=== PATIENT | male | born 1940 | race Caucasian/White ===

== ENCOUNTER → 2016-06-23 | Outpatient (CLI) | payer MEDICARE ==
[2015-08-22 13:00] VITALS: BP 170/74
[~2016-06-23] MED LIST: AMLO5TAB2 PO; ASPI325T4 PO; CRESTOR10 MG PO; HYDR12.58 PO; OMEP20TA PO
--- NOTE | 2016-06-23 09:14 | RAD ---
Carotid ultrasound, 06/23/2016: History: Cardiovascular disease Duplex evaluation of the carotid arteries in the neck was performed including grayscale, color-flow and spectral Doppler analysis. There is mild to moderate atherosclerotic plaquing in the common carotid arteries and at the carotid bifurcations. On the right, there is an elevated velocity in the proximal internal carotid artery of 200 cm/s. The end-diastolic velocity at that level is 23 cm/s. The internal carotid artery to common carotid artery ratio is 2.3. This ratio and the peak systolic velocity suggest narrowing in the 50-70% diameter range, however, the lack of end-diastolic velocity measurement suggests a lesser degree of narrowing. The color images do not demonstrate high-grade stenosis. Similar findings were present on the previous study of 06/01/2015. The CTA of the neck exam from 10/30/2015 did not demonstrate high-grade stenosis on the right. The current study also demonstrates an elevated velocity in the right external carotid artery up to 208 cm/s. The color images do not demonstrate high-grade external carotid arterial stenosis. On the left, the peak systolic velocity in the internal carotid artery is 140 cm/s with an end-diastolic velocity of 21 cm/s. The internal carotid artery to common carotid artery ratio is 1.1. These Doppler findings suggest narrowing in the 0-50% diameter range. Antegrade flow is present in both vertebral arteries in the neck. IMPRESSION: 1. Mild to moderate atherosclerotic plaquing at the carotid bifurcations. 2. Ongoing mild velocity accelerations in the right proximal internal carotid and external carotid arteries as described above, without evidence of high-grade stenosis. 3. Narrowing at the left carotid bifurcation in the 0-50% diameter range. Note: Stenosis calculations for CT, MRA and conventional angiography are based upon determination of the distal ICA diameter in accordance with the NASCET methodology. Stenosis calculations for Doppler studies are derived from validated velocity criteria which are known to correlate with NASCET methodology of determining stenosis.
== END | disposition home or self-care (01) ==
LOC: US 06:49
PROVIDERS: ATTEND Specialist
DX: I65.23 Occlusion and stenosis of bilateral carotid arteries (principal)
CPT/HCPCS: 93880

== ENCOUNTER → 2016-10-08 | Outpatient (CLI) | payer MEDICARE ==
[2015-08-22 13:00] VITALS: BP 170/74
[~2016-10-08] MED LIST changes: -ASPI325T4 PO; +ASPI325T8 PO; -OMEP20TA PO; +OMEP20TA8 PO
--- NOTE | 2016-10-08 15:49 | RAD ---
Indication: Right carotid bruit. Grayscale, color-flow and duplex Doppler evaluation of the right carotid system was performed. There is mild/moderate plaquing identified in the right carotid bulb and bifurcation extending into the internal and external carotid arteries. Peak velocity in the right common carotid artery is 127 cm/s. Peak velocity in the right internal carotid artery is proximally measuring 206 cm/s. There is elevated velocity in the right external carotid artery reaching 311 cm/s. The right vertebral artery demonstrates antegrade flow. The ICA to CCA ratio on the right is 2.6. Impression: Moderate right carotid plaque. There are elevated velocities present in the proximal right ICA with the measurements consistent with approximately 50-69% diameter stenosis.
== END | disposition home or self-care (01) ==
LOC: US 15:06
PROVIDERS: ATTEND Specialist
DX: I65.21 Occlusion and stenosis of right carotid artery (principal)
CPT/HCPCS: 93882

== ENCOUNTER → 2016-10-10 | Outpatient (CLI) | payer MEDICARE ==
[2015-08-22 13:00] VITALS: BP 170/74
[~2016-10-10] MED LIST changes: +CONTRAST GIVEN MC PRN; +IOHEXOL 300 MG/ML 75 ML VIAL IV ONE
--- NOTE | 2016-10-10 09:54 | RAD ---
Indication: Carotid stenosis. Axial imaging through the neck was performed after the administration of intravenous contrast and utilizing the CT angiography protocol. Multiplanar, 3-D and MIP reformations were also performed. There is a normal three-vessel branching pattern to the aortic arch. The origins to the common carotid arteries are widely patent. Both common carotid arteries are patent. There is some mild to moderate calcified plaque on the left. There is moderate plaque identified at the left carotid bifurcation and proximal left ICA. This does produce approximately 50% diameter stenosis of the proximal left ICA. The remainder of the left ICA is widely patent. The right ICA demonstrates postop changes and appears widely patent. No stenosis is seen. The vertebral arteries are patent. The right vertebral artery is dominant. Bilateral posterior cerebral, anterior cerebral and middle cerebral arteries are patent. Impression: There is moderate calcified plaque at the left carotid bifurcation and proximal left ICA producing approximately 50% diameter stenosis. No other significant abnormality is detected. PQRS Compliance Statement: One or more of the following individualized dose reduction techniques were utilized for this examination: 1. Automated exposure control 2. Adjustment of the mA and/or kV according to patient size 3. Use of iterative reconstruction technique
== END | disposition home or self-care (01) ==
LOC: CT 08:28
PROVIDERS: ATTEND Specialist
DX: I65.29 Occlusion and stenosis of unspecified carotid artery (principal)
CPT/HCPCS: 70498; Q9967

== ENCOUNTER 2018-01-18 15:44 | Emergency (ER) | payer MEDICARE ==
[~2018-01-18] VITALS: Ht 170.2 cm; Wt 74.8 kg
[~2018-01-18 15:44] MED LIST changes: -AMLO5TAB2 PO; +AMLO5TAB7 PO; -CONTRAST GIVEN MC PRN; -IOHEXOL 300 MG/ML 75 ML VIAL IV ONE
[2018-01-18 16:55] VITALS: BP 144/68
[2018-01-18] MEDS ORDERED: LIDOCAINE WITH 8.4% SOD BICARB 3 ML DISP.SYRIN. INJ ONE (17:00)
[2018-01-18] MEDS ORDERED: DIPHTH,PERTUSS(ACELL),TET TOX 0.5 ML DISP.SYRIN. VAX IM ONE (17:00)
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
== END 2018-01-18 19:04 | disposition home or self-care (01) ==
LOC: ER 15:44
DX: S01.91XA Laceration without foreign body of unspecified part of head, initial encounter (principal); E78.00 Pure hypercholesterolemia, unspecified; K21.9 Gastro-esophageal reflux disease without esophagitis; I25.10 Atherosclerotic heart disease of native coronary artery without angina pectoris; Z86.73 Personal history of transient ischemic attack (TIA), and cerebral infarction without residual deficits; I10 Essential (primary) hypertension; Z95.1 Presence of aortocoronary bypass graft; Z95.5 Presence of coronary angioplasty implant and graft; Z98.84 Bariatric surgery status; W22.8XXA Striking against or struck by other objects, initial encounter; Y93.89 Activity, other specified; Y92.89 Other specified places as the place of occurrence of the external cause; Y99.8 Other external cause status
CPT/HCPCS: 12011; 70450; 72125; 90471; 90715; 99284-25

== ENCOUNTER 2018-01-25 09:43 | Emergency (ER) | payer MEDICARE ==
[~2018-01-25] VITALS: Ht 170.2 cm; Wt 74.8 kg
[2018-01-25 10:09] VITALS: BP 140/65
--- NOTE | 2018-01-25 10:24 | PHYS DOC ---
Past Medical History Past Medical History: High Cholesterol, Hypertension Past Surgical History: Appendectomy, Coronary Bypass Surgery Additional Past Surgical Histo: right carotid with stent placement Alcohol Use: None Drug Use: None Adult General Chief Complaint Chief Complaint: SUTURE/STAPLE REMOVAL [facility] HPI Patient is a 77 year old male who presents with a need for suture removal. The patient has a well-healed laceration to his mid upper for head that was sutured with 1 long running stitch. He has had no problems with his recovery. Review of Systems Review of Systems Constitutional: Denies fever or chills [] Respiratory: Denies cough or shortness of breath [] Cardiovascular: No additional information not addressed in HPI [] Musculoskeletal: Denies back pain or joint pain [] Integument: See history of present illness Neurologic: Denies headache, focal weakness or sensory changes [] Endocrine: Denies polyuria or polydipsia [] All other systems were reviewed and found to be within normal limits, except as documented in this note. Allergies Allergies Allergies Coded Allergies Type Severity Reaction Last Updated Verified No Known Drug Allergies 08/22/15 No Physical Exam Physical Exam Constitutional: Well developed, well nourished, no acute distress, non-toxic appearance. [] Cardiovascular:Heart rate regular rhythm, no murmur [] Lungs & Thorax: Bilateral breath sounds clear to auscultation [] Abdomen: Bowel sounds normal, soft, no tenderness, no masses, no pulsatile masses. [] Skin: 1 running suture noted to a well-healed 1.5 cm laceration to the midforehead Back: No tenderness, no CVA tenderness. [] Extremities: No tenderness, no cyanosis, no clubbing, ROM intact, no edema. [] Neurologic: Alert and oriented X 3, normal motor function, normal sensory function, no focal deficits noted. [] Psychologic: Affect normal, judgement normal, mood normal. [] Current Patient Data Vital Signs Vital Signs Date Time Temp Pulse Resp B/P (MAP) Pulse Ox O2 Delivery O2 Flow Rate FiO2 01/25/18 10:09 98.7 96 16 140/65 (90) 96 Room Air 98.7 EKG EKG [] Radiology/Procedures Radiology/Procedures []Suture Removal by me: Sutures removed with tweezers and scissors without incident. Wound shows no evidence of infection, foreign body, neurologic injury, vascular injury, open joint or tendon laceration. Patient to follow up PRN. Course & Med Decision Making Course & Med Decision Making Pertinent Labs and Imaging studies reviewed. (See chart for details) [] Staff Physician Addendum: I was working in the ER during the course of this patient's visit. I was available for consultation as needed, but I was not directly involved in the care of this patient. Dragon Disclaimer Dragon Disclaimer This electronic medical record was generated, in whole or in part, using a voice recognition dictation system. Departure Departure Impression: Primary Impression: Visit for suture removal Disposition: HOME, SELF-CARE Condition: STABLE Referrals: PASHA COLON MD (PCP) Patient Instructions: Suture Removal Additional Instructions: Do not scrub the affected area until the tissue is completely healed. Continue to keep the wound clean and dry. Follow up with your primary care provider as needed for future healthcare needs. KONRAD RAMOS APRN Jan 25, 2018 10:24 ERMA MEEK MD Jan 26, 2018 06:01
== END 2018-01-25 10:31 | disposition home or self-care (01) ==
LOC: ER 09:43
DX: S01.01XD Laceration without foreign body of scalp, subsequent encounter (principal); Z48.02 Encounter for removal of sutures; E78.00 Pure hypercholesterolemia, unspecified; I10 Essential (primary) hypertension; Z90.49 Acquired absence of other specified parts of digestive tract; X58.XXXD Exposure to other specified factors, subsequent encounter
CPT/HCPCS: 99281